=== PATIENT | male | born 1955 | race Caucasian/White ===

== ENCOUNTER 2018-08-23 03:58 | Emergency (ER) | payer OTHER ==
[2018-08-23] MEDS ORDERED: Ondansetron 4 MG/2 ML SDV IVPUSH ONE (04:00)
[2018-08-23] MEDS ORDERED: Sodium Chloride 0.9% 1,000 ML IV SCH ×2 (04:00→04:15)
[2018-08-23] MEDS ORDERED: Meclizine 25 MG Tab PO ONE (04:10)
--- NOTE | 2018-08-23 04:20 | EDM.PDOC ---
ED HPI GENERAL MEDICAL PROBLEM - General Chief Complaint: Gastrointestinal Problem Stated Complaint: MEDICAL [facility] Time Seen by Provider: 08/23/18 04:16 Source of Information: Reports: Patient History Limitations: Reports: No Limitations - History of Present Illness INITIAL COMMENTS - FREE TEXT/NARRATIVE: pt woke up from a sound sleep and the whole room was spinning. He has never had this before,. He became very nauseated and vomited nonstop until the ambulance arrived. He did not have a severe headache. He has never had this before. He has not had a recent upper resp illness. Onset: Today, Sudden Duration: Hour(s): Location: Reports: Head, Generalized Associated Symptoms: Reports: Nausea/Vomiting, Other ( Marked vertigo. ) denies pain Pain Score (Numeric/FACES): 0 - Related Data Allergies Allergy/AdvReac Type Severity Reaction Status Date / Time meloxicam Allergy Chest Pain Verified 08/23/18 04:16 Home Meds: Home Meds [place]-3/DHA/Epa/Fish Oil [Fish Oil 1,000 mg Softgel] 1 tab PO DAILY 08/15/15 [ History] Rosuvastatin [Crestor] 20 mg PO DAILY 08/15/15 [History] Ubidecarenone [Co Q-10] 300 mg PO DAILY 08/15/15 [History] Cholecalciferol (Vitamin D3) [Vitamin D3] 1,000 unit PO DAILY 08/23/18 [History] Cyanocobalamin (Vitamin B-12) [Vitamin B-12] 1,000 mcg PO DAILY 08/23/18 [ History] Past Medical History HEENT History: Reports: Impaired Vision Cardiovascular History: Reports: High Cholesterol Musculoskeletal History: Reports: Fracture Other Musculoskeletal History: finger Oncologic (Cancer) History: Reports: Other (See Below) Other Oncologic History: skin Dermatologic History: Reports: Melanoma - Infectious Disease History Infectious Disease History: Reports: Chicken Pox, Measles - Past Surgical History GI Surgical History: Reports: Colonoscopy ED ROS GENERAL - Review of Systems Review Of Systems: See Below Constitutional: Reports: No Symptoms, Diaphoresis HEENT: Reports: Vertigo, Other ( sudden onset. ) Respiratory: Reports: No Symptoms Cardiovascular: Reports: No Symptoms Endocrine: Reports: No Symptoms, Other ( bs was 180) GI/Abdominal: Reports: Nausea, Vomiting, Other ( no pain in the abdoman. ) : Reports: No Symptoms Musculoskeletal: Reports: No Symptoms Skin: Reports: No Symptoms Neurological: Reports: Other ( vertigo) Psychiatric: Reports: Anxiety Hematologic/Lymphatic: Reports: No Symptoms ED EXAM, GI/ABD - Physical Exam Exam: See Below Text/Narrative:: pt had marked vertigo when he woke up and he states the spinning has now stopped. He has never had this in the past. He does not have a severe headache. Exam Limited By: No Limitations General Appearance: Alert, Anxious, Moderate Distress, Other (pupils are equal and reactive. ) Ears: Normal TMs Nose: Normal Inspection Throat/Mouth: Normal Inspection Head: Atraumatic Neck: Normal Inspection Respiratory/Chest: No Respiratory Distress Cardiovascular: Regular Rate, Rhythm GI/Abdominal Exam: Soft, Non-Tender (Male) Exam: Deferred Rectal (Males) Exam: Deferred Back Exam: Normal Inspection Extremities: Normal Inspection Neurological: Alert, Oriented, Normal Cognition Psychiatric: Anxious Course - Vital Signs Last Recorded V/S: Last Vital Signs Temp 35.7 C 08/23/18 04:28 Pulse 79 08/23/18 04:28 Resp 15 08/23/18 04:28 BP 147/95 H 08/23/18 04:28 Pulse Ox 94 L 08/23/18 04:28 - Orders/Labs/Meds Orders: Active Orders 24 hr Category Date Time Status Sodium Chloride 0.9% [Normal Saline] 1,000 ml Med 08/23/18 04:00 Active IV ASDIRECTED Sodium Chloride 0.9% [Normal Saline] 1,000 ml Med 08/23/18 04:15 Active IV ASDIRECTED Medication Orders Sodium Chloride (Normal Saline) 1,000 mls @ 999 mls/hr IV ASDIRECTED TATY Last Admin: 08/23/18 04:28 Dose: 999 mls/hr Sodium Chloride (Normal Saline) 1,000 mls @ 999 mls/hr IV ASDIRECTED TATY Last Admin: 08/23/18 05:38 Dose: 999 mls/hr Labs: Laboratory Tests 08/23/18 08/23/18 08/23/18 Range/Units 04:00 04:00 04:45 WBC 7.0 (4.5-11.0) K/uL RBC 4.72 (4.30-5.90) M/uL Hgb 14.6 (12.0-15.0) g/dL Hct 42.3 (40.0-54.0) % MCV 90 (80-98) fL MCH 31 (27-31) pg MCHC 35 (32-36) % Plt Count 203 (150-400) K/uL Neut % (Auto) 56 (36-66) % Lymph % (Auto) 35 (24-44) % Centre % (Auto) 7 H (2-6) % Eos % (Auto) 2 (2-4) % Baso % (Auto) 0 (0-1) % Sodium 143 (140-148) mmol/L Potassium 3.6 (3.6-5.2) mmol/L Chloride 106 (100-108) mmol/L Carbon Dioxide 27 (21-32) mmol/L Anion Gap 10.1 (5.0-14.0) mmol/L BUN 16 (7-18) mg/dL Creatinine 1.2 (0.8-1.3) mg/dL Est Cr Clr Drug Dosing 73.26 mL/min Estimated GFR (MDRD) > 60 (>60) Glucose 185 H (74-106) mg/dL Calcium 8.4 L (8.5-10.1) mg/dL Total Bilirubin 0.3 (0.2-1.0) mg/dL AST 19 (15-37) U/L ALT 32 (12-78) U/L Alkaline Phosphatase 87 (46-116) U/L Total Protein 6.8 (6.4-8.2) g/dL Albumin 3.5 (3.4-5.0) g/dL Globulin 3.3 (2.3-3.5) g/dL Albumin/Globulin Ratio 1.1 L (1.2-2.2) Urine Color Yellow Urine Appearance Clear Urine pH 5.0 (4.5-8.0) Ur Specific [place] 1.025 (1.008-1.030) Urine Protein Negative (NEGATIVE) mg/dL Urine Glucose (UA) 100 H (NEGATIVE) mg/dL Urine Ketones Negative (NEGATIVE) mg/dL Urine Occult Blood Negative (NEGATIVE) Urine Nitrite Negative (NEGAITVE) Urine Bilirubin Negative (NEGATIVE) Urine Urobilinogen Normal (NORMAL) mg/dL Ur Leukocyte Esterase Negative (NEGATIVE) Urine RBC 0-5 (0-5) Urine WBC 0-5 (0-5) Ur Epithelial Cells Rare Amorphous Sediment Not seen Urine Bacteria Few Urine Mucus Moderate Meds: Medications Generic Name Dose Route Start Last Admin Trade Name Freq PRN Reason Stop Dose Admin Sodium Chloride 1,000 mls @ 999 mls/hr 08/23/18 04:00 08/23/18 04:28 Normal Saline IV 999 mls/hr ASDIRECTED TATY Administration Sodium Chloride 1,000 mls @ 999 mls/hr 08/23/18 04:15 08/23/18 05:38 Normal Saline IV 999 mls/hr ASDIRECTED TATY Administration Discontinued Medications Generic Name Dose Route Start Last Admin Trade Name Freq PRN Reason Stop Dose Admin Meclizine HCl 25 mg 08/23/18 04:10 08/23/18 04:33 Antivert PO 08/23/18 04:11 25 mg ONETIME ONE Administration Ondansetron HCl 4 mg 08/23/18 04:00 08/23/18 04:29 Zofran IVPUSH 08/23/18 04:01 4 mg ONETIME ONE Administration - Re-Assessments/Exams Free Text/Narrative Re-Assessment/Exam: 08/23/18 05:04 pt was given 2 liters of fluiod. He had zoforan for the nausea and antivert for the dizziness. He is feeling better. Since this was his first episode of vertigo a cat scan of the head was obtained. Departure - Departure Time of Disposition: 06:43 Disposition: Home, Self-Care 01 Condition: Fair Clinical Impression: Inner ear dysfunction - Discharge Information Referrals: PCP,None [Primary Care Provider] - Forms: ED Department Discharge Care Plan Goals: low activity, antivert 25 mg tid for 2 days, rtc if increased symptoms. - My Orders Last 24 Hours: My Active Orders 08/23/18 04:00 Sodium Chloride 0.9% [Normal Saline] 1,000 ml IV ASDIRECTED 08/23/18 04:15 Sodium Chloride 0.9% [Normal Saline] 1,000 ml IV ASDIRECTED - Assessment/Plan Last 24 Hours: My Active Orders 08/23/18 04:00 Sodium Chloride 0.9% [Normal Saline] 1,000 ml IV ASDIRECTED 08/23/18 04:15 Sodium Chloride 0.9% [Normal Saline] 1,000 ml IV ASDIRECTED
[2018-08-23 04:22] VITALS: BP 147/95; PULSE 79
--- NOTE | 2018-08-23 05:18 | CRLCT ---
INDICATION: Vertigo TECHNIQUE: CT head without contrast. COMPARISON: None. FINDINGS: CSF spaces: Within normal limits for age. Brain parenchyma: The demarco-white differentiation is normal. No sign of mass, hemorrhage, or midline shift. Skull base and calvarium: Trace sinus mucosal thickening. The visualized orbits are grossly unremarkable. No skull fractures. IMPRESSION: Unremarkable noncontrast head CT. Please note that all CT scans at this facility use dose modulation, iterative reconstruction, and/or weight-based dosing when appropriate to reduce radiation dose to as low as reasonably achievable. Dictated by Dima Elias MD @ Aug 23 2018 5:14AM Signed by Dr. Dima Elias @ Aug 23 2018 5:17AM
== END 2018-08-23 06:54 | disposition home or self-care (01) ==
LOC: JP.ED 03:58
DX: H83.2X9 Labyrinthine dysfunction, unspecified ear (principal); R11.2 Nausea with vomiting, unspecified; R42 Dizziness and giddiness; E78.00 Pure hypercholesterolemia, unspecified; Z88.6 Allergy status to analgesic agent; Z79.899 Other long term (current) drug therapy
CPT/HCPCS: 36415; 70450; 80053; 81001; 85025; 96361; 96374; 99284; A9270; J2405; J7030

== ENCOUNTER 2021-08-24 06:30 | Inpatient (IN) | payer MEDICARE, BC ==
[2021-08-24] MEDS ORDERED: Nozin Nasal Sanitizer NASBOTH SCH (06:45)
[2021-08-24] MEDS ORDERED: Bupivacaine 0.5% 30 ML SDV ONE (06:47)
[2021-08-24 07:21] LABS: ESTIMATED GFR 74 mL/min (>60)
[2021-08-24] MEDS ORDERED: Propofol 200 MG/20 ML SDV ONE ×3 (07:25→10:35)
[2021-08-24] MEDS ORDERED: Midazolam 1 MG/ML 2 ML SDV ONE ×2 (07:25→10:21)
[2021-08-24] MEDS ORDERED: fentaNYL 100 MCG/2 ML SDV ONE ×2 (07:25→10:51)
[2021-08-24] MEDS ORDERED: Lactated Ringers 1,000 ML IV SCH (07:45)
[2021-08-24] MEDS ORDERED: ceFAZolin 2 GM in Premix Bag 1 BAG IV ONE (08:30)
[2021-08-24] MEDS ORDERED: Tranexamic Acid 1,000 MG in Sodium Chloride 0.9% 50 ML IV ONE (08:30)
[2021-08-24] MEDS ORDERED: Lactated Ringers 1,000 ML ONE (09:53)
[2021-08-24] MEDS ORDERED: HYDROmorphone 0.5 MG/0.5 ML Syringe IVPUSH PRN (11:31)
[2021-08-24] MEDS ORDERED: oxyCODONE 5 MG Tab PO PRN (11:31)
[2021-08-24] MEDS: Sodium Chloride 0.9% 1,000 ML IV SCH ×2 (12:29→20:50)
[2021-08-24] MEDS: Acetaminophen 500 MG Tab PO SCH ×2 (13:45→20:56)
[2021-08-24] MEDS: traMADol 50 MG Tab PO PRN (13:45)
[2021-08-24] MEDS ORDERED: Ondansetron 4 MG/2 ML SDV IVPUSH PRN (15:48)
[2021-08-24] MEDS ORDERED: Ondansetron 4 MG Tab.DIS PO PRN (15:49)
[2021-08-24] MEDS: ceFAZolin 1 GM in Premix Bag 1 BAG IV SCH (16:28)
[2021-08-24] MEDS: metFORMIN 500 MG Tab PO SCH (17:55)
[2021-08-24] MEDS: Ketorolac 30 MG/ML SDV IVPUSH SCH (20:52)
[2021-08-24] MEDS: Nozin Nasal Sanitizer NASBOTH SCH (20:56)
[2021-08-24] MEDS: oxyCODONE 5 MG Tab PO PRN (20:57)
[2021-08-24] MEDS: Docusate Sodium 100 MG Cap PO SCH (20:57)
[2021-08-24] MEDS ORDERED: ICOSAPENT ETHYL 1 GM PO SCH (21:00)
[2021-08-25] MEDS: ceFAZolin 1 GM in Premix Bag 1 BAG IV SCH ×2 (00:43→07:35)
[2021-08-25] MEDS: Acetaminophen 500 MG Tab PO SCH ×4 (01:43→20:16)
[2021-08-25] MEDS: oxyCODONE 5 MG Tab PO PRN ×2 (01:44→07:32)
[2021-08-25] MEDS: Ketorolac 30 MG/ML SDV IVPUSH SCH (05:20)
[2021-08-25] MEDS: metFORMIN 500 MG Tab PO SCH ×2 (09:45→17:09)
[2021-08-25] MEDS: Nozin Nasal Sanitizer NASBOTH SCH ×2 (09:46→20:18)
[2021-08-25] MEDS: Docusate Sodium 100 MG Cap PO SCH ×2 (09:47→20:17)
[2021-08-25] MEDS: Losartan 50 MG Tab PO SCH (09:47)
[2021-08-25] MEDS: Glimepiride 2 MG Tab PO SCH (09:47)
[2021-08-25] MEDS: Enoxaparin 30 MG/0.3 ML Syringe SUBCUT SCH (09:48)
[2021-08-25] MEDS: Rosuvastatin 10 MG Tab PO SCH (09:48)
[2021-08-25] MEDS: traMADol 50 MG Tab PO PRN ×3 (11:22→20:17)
[2021-08-25] MEDS: Celecoxib 200 MG Cap PO SCH (21:58)
[2021-08-26] MEDS: traMADol 50 MG Tab PO PRN ×3 (00:05→08:20)
[2021-08-26] MEDS: Acetaminophen 500 MG Tab PO SCH ×3 (02:50→14:25)
[2021-08-26] MEDS: metFORMIN 500 MG Tab PO SCH (08:20)
[2021-08-26] MEDS: Docusate Sodium 100 MG Cap PO SCH (08:20)
[2021-08-26] MEDS: Losartan 50 MG Tab PO SCH (08:20)
[2021-08-26] MEDS: Enoxaparin 30 MG/0.3 ML Syringe SUBCUT SCH (08:21)
[2021-08-26] MEDS: Glimepiride 2 MG Tab PO SCH (08:21)
[2021-08-26] MEDS: Celecoxib 200 MG Cap PO SCH (08:21)
[2021-08-26] MEDS: Rosuvastatin 10 MG Tab PO SCH (08:21)
[2021-08-26] MEDS: Nozin Nasal Sanitizer NASBOTH SCH (08:22)
[2021-08-26] MEDS ORDERED: Acetaminophen/HYDROcodone 325-10 MG Tab PO PRN (11:43)
[2021-08-26] MEDS: Acetaminophen/HYDROcodone 325-5 MG Tab PO PRN ×2 (12:34→16:47)
[2021-08-26 15:06] VITALS: BP 139/78; PULSE 87
== END 2021-08-26 17:04 | disposition home or self-care (01) | DRG 470 ==
LOC: JP.SDS 06:30 → JP.MS 11:31 → JP.SDS 08-25 12:16 → JP.MS 08-25 12:16
PROVIDERS: ADMIT Specialist; ATTEND Specialist
PROC: 0SR90JZ Replacement of Right Hip Joint with Synthetic Substitute, Open Approach (ICD-10-PCS; principal; 2021-08-24)
DX: M16.11 Unilateral primary osteoarthritis, right hip (principal); D64.9 Anemia, unspecified; I10 Essential (primary) hypertension; E78.5 Hyperlipidemia, unspecified; E11.9 Type 2 diabetes mellitus without complications; Z79.84 Long term (current) use of oral hypoglycemic drugs; Z79.899 Other long term (current) drug therapy; Z88.8 Allergy status to other drugs, medicaments and biological substances
CPT/HCPCS: 36415; 72170; 72170-26; 80053; 82947; 85025; 85027; 97110-GP; 97161-GP; 97530-GP; 97535-GP; A9270-GY; C1713; C1776; J0690; J1170; J1650; J1885; J2250; J2405; J2704; J3010; J3490; J7030; J7120; Q0162

== ENCOUNTER 2021-10-18 09:16 | Emergency (ER) | payer MEDICARE, BC ==
[2021-10-18 09:35] VITALS: BP 146/83; PULSE 98
[2021-10-18 10:20] LABS: TROPONIN I HIGH SENSITIVITY 5.1 pg/mL (<=60.3)
== END 2021-10-18 10:45 | disposition home or self-care (01) ==
LOC: JP.ED 09:16
DX: J68.9 Unspecified respiratory condition due to chemicals, gases, fumes and vapors (principal); E78.00 Pure hypercholesterolemia, unspecified; I10 Essential (primary) hypertension; E11.9 Type 2 diabetes mellitus without complications; Z88.8 Allergy status to other drugs, medicaments and biological substances; Z79.899 Other long term (current) drug therapy; Z79.84 Long term (current) use of oral hypoglycemic drugs
CPT/HCPCS: 36415; 71046; 71046-26; 80048; 84484; 85025; 93005; 99285

== ENCOUNTER 2023-06-27 06:59 | Day surgery (SDC) | payer MEDICARE, BC ==
[2023-06-27] MEDS ORDERED: Midazolam 1 MG/ML 2 ML SDV ONE (07:29)
[2023-06-27] MEDS ORDERED: Propofol 200 MG/20 ML SDV ONE (07:29)
[2023-06-27] MEDS ORDERED: fentaNYL 50 MCG/ML SDV ONE (07:29)
[2023-06-27] MEDS: Dextrose 5%-Lactated Ringers 1,000 ML IV SCH (07:39)
[2023-06-27 10:07] VITALS: BP 101/63; PULSE 80
== END 2023-06-27 10:05 | disposition home or self-care (01) ==
LOC: JP.SDS 06:59
PROVIDERS: ATTEND Family Medicine
DX: Z12.11 Encounter for screening for malignant neoplasm of colon (principal); K57.30 Diverticulosis of large intestine without perforation or abscess without bleeding; Z86.010 Personal history of colon polyps; I10 Essential (primary) hypertension; E11.9 Type 2 diabetes mellitus without complications; E78.5 Hyperlipidemia, unspecified; Z79.84 Long term (current) use of oral hypoglycemic drugs; Z79.899 Other long term (current) drug therapy
CPT/HCPCS: G0105; J2250; J2704; J3010; J7121; 00812-QZ

== ENCOUNTER 2024-11-24 12:08 | Emergency (ER) | payer MEDICARE, BC ==
[2024-11-24 12:37] VITALS: BP 131/89; PULSE 68
== END 2024-11-24 13:13 | disposition home or self-care (01) ==
LOC: JP.ED 12:08
DX: Z48.817 Encounter for surgical aftercare following surgery on the skin and subcutaneous tissue (principal); I10 Essential (primary) hypertension; E78.00 Pure hypercholesterolemia, unspecified; E11.9 Type 2 diabetes mellitus without complications; M19.90 Unspecified osteoarthritis, unspecified site; Z79.899 Other long term (current) drug therapy; Z88.8 Allergy status to other drugs, medicaments and biological substances
CPT/HCPCS: 99283